=== PATIENT | male | born 2005 | race Hispanic/Latino ===

== ENCOUNTER 2025-02-22 23:51 | Emergency (ER) | payer BC, SELFPAY ==
--- NOTE | ~2025-02-22 | XR_ITS ---
Examination: XR chest 2V Clinical History: sob Comparison: None Technique: PA and Lateral Findings: Cardiomediastinal silhouette normal size and configuration. Lungs clear. No acute bony abnormality. IMPRESSION: 1. No acute cardiopulmonary findings. Reviewed, dictated and finalized at location R. UNICATIONS BILLING ANALYST
[2025-02-23 00:13] VITALS: BP 128/75; PULSE 129; RESP 20; TEMP 38; O2SAT 100
[2025-02-23 00:57] LABS: Influenza A QL RT-PCR Positive (Negative); Influenza B QL RT-PCR Negative (Negative); RSV RNA, RT-PCR Negative (Negative); SARS-CoV-2 RNA PCR Negative (Negative)
--- NOTE | 2025-02-23 01:03 | ED_ITS ---
HPI - URI/Sore Throat General Chief Complaint: Shortness of Breath/Dyspnea Stated Complaint: cough and sob x 1 day Time Seen by Provider: 02/23/25 01:03 Focused HPI: This is a 19 year old male that presents to the ER for cough, runny nose. Started earlier today. Reports now with chills and fever. GENERAL: Well-appearing, well-nourished, and in no acute distress. HEAD: Normocephalic, atraumatic. CHEST: Clear to auscultation. ?No respiratory distress. HEART: Regular rate and rhythm.? NEURO: ?Alert and oriented x3. Patient screened in triage and initial orders placed.? ?Additional care and disposition to be based upon?diagnostic testing and treatment. Review of Systems Review of Systems: All systems reviewed & are unremarkable except as noted in HPI and below PMFSH Social History Social History (Updated 02/23/25 @ 01:04 by Candace Johnson PA-C) Smoking status: Never smoker Substance use: current Substance use type: marijuana Exam Narrative: GENERAL: Well-appearing, well-nourished, and in no acute distress. HEAD: Normocephalic, atraumatic. EYES: EOMI. ENT: Nares clear, no rhinorrhea or epistaxis. Mucous membranes moist. Oropharynx without tonsillar hypertrophy exudate or other lesions. NECK: Supple. No adenopathy or masses. CHEST: Clear to auscultation. No respiratory distress. No wheezes rales or rhonchi HEART: Regular rate and rhythm. No murmur heard. Normal peripheral pulses. EXTREMITIES: Normal range of motion. No edema. SKIN: Warm, dry, no rash. NEURO: No focal deficits. Alert and oriented x3. PSYCH: Normal mood and affect Course Vital Signs Vital signs: Vital Signs Temperature 100.4 F H 02/23/25 00:13 Pulse Rate 129 H 02/23/25 00:13 Respiratory Rate 20 02/23/25 00:13 Blood Pressure 128/75 02/23/25 00:13 Pulse Oximetry 100 02/23/25 00:13 Oxygen Delivery Room Air 02/23/25 00:13 Temperature 100.4 F H 02/23/25 00:13 Pulse Rate 129 H 02/23/25 00:13 Respiratory Rate 20 02/23/25 00:13 Blood Pressure 128/75 02/23/25 00:13 Pulse Oximetry 100 02/23/25 00:13 Oxygen Delivery Room Air 02/23/25 00:13 [facility] Narrative Medical decision making narrative: Patient presents the emergency department for cold symptoms. Febrile and tachycardic upon arrival, patient had not taken any antipyretic prior to arrival. Given a dose of Tylenol. Found to have influenza A. Will be started on Tamiflu Differential Diagnosis Differential Diagnosis: Influenza, COVID, pneumonia, viral syndrome Lab Data [facility] Lab Attestation statement: I personally reviewed the patient's lab results. Labs: Lab Results 02/23/25 Range/Units 00:15 Influenza A (RT-PCR) Positive A (Negative) Influenza B (RT-PCR) Negative (Negative) RSV (RT-PCR) Negative (Negative) SARS-CoV-2 RNA (RT-PCR) Negative (Negative) Imaging Data My impression: Chest x-ray: No acute cardiopulmonary abnormality Critical Care Time Critical Care Time Critical Care Time: No Discharge Plan Discharge Clinical Impression: Influenza A Patient Disposition: Home Condition: Stable Instructions: Influenza (ED) Additional Instructions: Return to the ER if you experience worsening symptoms, or any other concerns Tylenol or Ibuprofen as needed for fever or pain. Zyrtec for runny nose. Flonase for nasal congestion. Take Tamiflu as prescribed Follow up with primary care doctor Patient Language: [place] Follow-up/Referrals: PHYSICIAN,TEACHING ASSOCIATE [Primary Care Provider, Internal Medicine] Cecil Urban MD [Physician, Family Practice]
[2025-02-23] MEDS: ACETAMINOPHEN 500 MG TABLET 1000 MG PO (01:40)
[2025-02-23 01:57] VITALS: TEMP 36.8
== END 2025-02-23 02:00 | disposition home or self-care (01) ==
LOC: ANHED 02-23 01:22
PROVIDERS: Emergency Provider Physician Assistant; PCP Internal Medicine Infectious Disease
DX: J10.1 Influenza due to other identified influenza virus with other respiratory manifestations (principal); Z20.822 Contact with and (suspected) exposure to COVID-19
CPT/HCPCS: 71046; 87637; 99283; A9270